=== PATIENT | male | born 1995 | race African-American/Black ===

== ENCOUNTER 2021-01-13 19:42 | Emergency (ER) | payer OTHER ==
[~2021-01-13] VITALS: Ht 182.9 cm; Wt 77.3 kg
[2021-01-13] MEDS ORDERED: KETOROLAC 30 MG/ML 1ML VIAL IV ONE (20:40)
[2021-01-13] MEDS ORDERED: LIDOCAINE 5% (LIDODERM) PATCH TD ONE (20:40)
[2021-01-13] MEDS ORDERED: methylPREDNISolone 125MG 2ML VIAL IV ONE (20:40)
[2021-01-13] MEDS ORDERED: CYCLOBENZAPRINE 5MG TABLET PO ONE (20:40)
[2021-01-13] MEDS ORDERED: **NOTE PATIENT COMMENT** MISC XX SCH (21:00)
[2021-01-13 21:14] LABS: BASO # 0.1 10^3/uL (0.0-0.2); BASO % 0.5 % (0.0-1.0); EOS # 0.3 10^3/uL (0.0-0.5); EOS % 3.2 % (0.0-3.0); HEMATOCRIT 44.8 % (42.0-52.0); HEMOGLOBIN 14.3 g/dl (13.5-17.5); LYMPH # 3.2 10^3/uL (1.5-5.0); LYMPH % 31.2 % (24.0-44.0); MEAN CORPUSCULAR HEMOGLOBIN 26.6 pg (27.0-33.0); MEAN CORPUSCULAR HGB CONC 31.9 g/dl (32.0-36.5); MEAN CORPUSCULAR VOLUME 83.3 fl (80.0-96.0); MONO # 1.1 10^3/uL (0.0-0.8); NEUTROPHILS # 5.4 10^3/uL (1.5-8.5); NEUTROPHILS % 53.9 % (36.0-66.0); PLATELET COUNT, AUTOMATED 271 10^3/uL (150-450); RED BLOOD COUNT 5.38 10^6/uL (4.30-6.10); WHITE BLOOD COUNT 10.1 10^3/uL (4.0-10.0)
--- NOTE | 2021-01-13 21:21 | REPVR ---
PROCEDURE INFORMATION: Exam: CT Lumbar Spine Without Contrast Exam date and time: 01/13/2021 8:46 PM Age: 25 years old Clinical indication: Low back pain; Additional info: Low back pain radiating to lle TECHNIQUE: Imaging protocol: Computed tomography images of the lumbar spine without contrast. Radiation optimization: All CT scans at this facility use at least one of these dose optimization techniques: automated exposure control; mA and/or kV adjustment per patient size (includes targeted exams where dose is matched to clinical indication); or iterative reconstruction. COMPARISON: No relevant prior studies available. FINDINGS: Vertebrae: There is a bilateral L5 spondylolysis without spondylolisthesis. L1-L2: No significant disc protrusion. No severe spinal canal stenosis. No significant neural foraminal narrowing. L2-L3: No significant disc protrusion. No spinal canal stenosis. No neural foraminal narrowing. L3-L4: Mild central spinal stenosis L3-L4. L4-L5: Moderate central spinal stenosis L4-L5. L5-S1: Bulging annulus L5-S1 without neural compromise. Soft tissues: Unremarkable. IMPRESSION: 1. Mild central spinal stenosis L3-L4 and moderate central spinal stenosis L4-L5. 2. Bulging annulus L5-S1 without neural compromise. 3. 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 Electronically signed by: Mike Cohen On 01/13/2021 21:20:59 PM
[2021-01-13 21:42] LABS: BLOOD UREA NITROGEN 14 MG/DL (7-18); CALCIUM LEVEL 8.7 MG/DL (8.5-10.1); CARBON DIOXIDE LEVEL 32 MEQ/L (21-32); CHLORIDE LEVEL 106 MEQ/L (98-107); CREATININE FOR GFR 1.09 MG/DL (0.70-1.30); GLOMERULAR FILTRATION RATE > 60.0 (>60); GLUCOSE, FASTING 67 MG/DL (70-100); POTASSIUM SERUM 3.9 MEQ/L (3.5-5.1); SODIUM LEVEL 142 MEQ/L (136-145)
[2021-01-13] MEDS ORDERED: MORPHINE 4 MG/ML 1ML VIAL/SYRINGE (J2270) IV ONE (22:35)
[2021-01-13] MEDS ORDERED: ONDANSETRON 4MG/2ML VIAL IV ONE (22:35)
[2021-01-13] MEDS ORDERED: LIDO5DIS41 TOP (23:35)
[2021-01-13] MEDS ORDERED: PRED20TA PO (23:35)
[2021-01-13 23:49] VITALS: BP 143/66
== END 2021-01-13 23:51 | disposition home or self-care (01) ==
LOC: M ED 19:42
DX: S39.012A Strain of muscle, fascia and tendon of lower back, initial encounter (principal); X58.XXXA Exposure to other specified factors, initial encounter; Y92.89 Other specified places as the place of occurrence of the external cause; M51.27 Other intervertebral disc displacement, lumbosacral region; M51.37 Other intervertebral disc degeneration, lumbosacral region; M48.07 Spinal stenosis, lumbosacral region; F17.210 Nicotine dependence, cigarettes, uncomplicated
CPT/HCPCS: 72131; 80048; 85025; 96374; 96375; 99284; J1885; J2270; J2405; J2930